=== PATIENT | male | born 1995 | race Caucasian/White ===

== ENCOUNTER 2024-01-08 14:06 | Emergency (ER) | payer OTHER, SELFPAY ==
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
[2024-01-08 14:26] VITALS: BP 137/76; PULSE 82; RESP 20; TEMP 37; O2SAT 97; BMI 20.8
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
[2024-01-08 15:34] VITALS: BP 112/70; PULSE 65; RESP 18; TEMP 36.7; O2SAT 96
[2024-01-08 16:29] VITALS: BP 112/70; PULSE 65; RESP 18; TEMP 36.7; O2SAT 96
== END 2024-01-08 16:30 | disposition home or self-care (01) ==
PROVIDERS: Emergency Provider Emergency Medicine; PCP Internal Medicine
DX: S06.0XAA Concussion with loss of consciousness status unknown, initial encounter (principal); V47.5XXA Car driver injured in collision with fixed or stationary object in traffic accident, initial encounter; W22.10XA Striking against or struck by unspecified automobile airbag, initial encounter; Y93.9 Activity, unspecified; Y92.488 Other paved roadways as the place of occurrence of the external cause; Y99.9 Unspecified external cause status; R51.9 Headache, unspecified; R41.3 Other amnesia
CPT/HCPCS: 70450; 99283; 99284

== ENCOUNTER 2025-01-26 08:12 | Outpatient (REF) | payer MEDICAID, SELFPAY ==
--- NOTE | 2025-01-26 08:15 | PFT_ITS ---
Flows: FEV1: 93 % of predicted at 4.25 L FVC: 96 % of predicted at 5.33 L FEV1/FVC: 80 % Bronchodilator response: Present in small to medium airways only. Volumes: Total lung capacity: 99 % of predicted at 7.12 L Residual volume: 112 % of predicted at 1.72 L Slow vital capacity: 96 % of predicted at 5.40 L Expiratory reserve volume: 94 % of predicted at 1.69 L Diffusion capacity: Mildly decreased, corrects to normal after adjustment for alveolar ventilation. Impression: No obstructive or restrictive ventilatory defect. Bronchodilator response is present in to medium airways only. Decreased diffusion capacity suggests emphysema. MTDD
[2025-01-26 09:01] VITALS: PULSE 78; O2SAT 97
== END 2025-01-26 08:13 | disposition home or self-care (01) ==
LOC: HO.RESP 08:12
PROVIDERS: PCP Internal Medicine; Visit Provider Internal Medicine
DX: R06.02 Shortness of breath (principal)
CPT/HCPCS: 94010; 94640; 94727; 94729

== ENCOUNTER → 2025-01-26 08:15 | Outpatient (BNV) | payer MEDICAID, SELFPAY | PROVIDERS: PCP Internal Medicine; Visit Provider Internal Medicine Pulmonary Disease | DX: R06.02 Shortness of breath (principal) | CPT/HCPCS: 94060; 94727; 94729 ==

== ENCOUNTER 2025-01-30 09:00 | Outpatient (RCR) | payer MEDICAID, SELFPAY ==
--- NOTE | 2025-01-19 15:23 | MHC.PT.EP ---
[facility] [place] Office [place] Office Tele[place] Office [address] Nadeem Saxena [address] [phone] F: [phone] F: [phone] F: [phone] F: [phone] Physical Therapy Plan of Care Date of Evaluation: 01/19/25 Date of Surgery: NA Diagnosis: Chronic L sided low back pain without sciatica Assessment: Dank is a 29 year old male who is referred to PT for Chronic L sided low back pain without sciatica . He reports of having pain for about 5-6 years. He denies any trauma or falls. On PT examination he presented with mild TTP over lumbar paraspinals, 7/10 pain in L sided back which radiates down to L LE- calf, decreased lumbar ROM, decreased flexibility of B LE muscles, altered posture and gait. He responded to raffi extension exercises. He lives with his brother and is independent with all ADLS. He however has pain with them. He attended [employer] and is sitting most of the day. He would benefit from skilled PT to address the aforementioned impairments and improve tolerance to functional activities. Frequency and Duration: The patient will be seen 2/week for 4 weeks. Short Term Goals: 1. Pt will present with centralized symptoms in 2 weeks 2. Pt will demonstrate good awareness of sitting posture and be able to assess and self correct posture every 30 minutes in 3 weeks. Usp Goals: 1. Pt will be able to move trunk through full plane of motion without any pain which will enable him to perform all ADLs without difficulty in 4 weeks. 2. Pt will be independent with all HEP for symptom management and maintenance following d/c in 4 weeks. Treatment Plan: Modalities to reduce pain, spasms and effusion. Manual therapy to restore motion and function. Therapeutic exercise to improve strength and flexibility. Neuromuscular re-education for posture and balance. Therapeutic activities to return to functional activities of daily living. Electronically signed by: Adelia Washington PT DPT Please sign and return to therapist. Thank you for your referral.
--- NOTE | 2025-03-13 13:19 | MHC.PT.DC ---
[facility] [place] Office [place] Office [place] Office [address] Nadeem Saxena [address] [phone] F: [phone] F: [phone] F: [phone] F: [phone] Physical Therapy Discharge Report Diagnosis: Chronic L sided low back pain without sciatica Date of Surgery: NA Date of Evaluation: 01/19/25 Date of Discharge: 03/13/25 Treatments to Date: 2 Cancellations to Date: 0 No Shows to Date: 0 Discharge Status: Patient Elected to Stop Discharge Summary: Dank attended 2 PT visits and did not make any more appointments after. He has not attempted to call to make appointments in over a month. He is therefore being d/c from PT. Electronically signed by: Adelia Washington PT DPT Please sign and return to therapist. Thank you for your referral.
== END 2025-03-13 13:19 | disposition home or self-care (01) ==
LOC: HO.PT 09:00
PROVIDERS: PCP Internal Medicine; Visit Provider Internal Medicine
DX: M54.50 Low back pain, unspecified (principal); G89.29 Other chronic pain
CPT/HCPCS: 97014; 97110; 97140; 97161